=== PATIENT | female | born 1990 ===

== ENCOUNTER 2017-06-03 17:50 | Emergency (ER) | payer OTHER ==
[2017-06-03 17:50] VITALS: BMI 53.4
[2017-06-03 18:08] VITALS: BP 128/55; PULSE 112; RESP 18; TEMP 99; O2SAT 98
[2017-06-03] MEDS ORDERED: Albuterol-Ipratrop 3 mg / 0.5 (3 ml) UD INH STA (18:57)
--- NOTE | 2017-06-03 18:59 | ED PDOC ---
HPI: General Adult Time Seen by Provider: 06/03/17 18:53 Chief Complaint (Nursing): Cough, Cold, Congestion Chief Complaint (Provider): cough History Per: Patient Additional Complaint(s): 26-year-old female presents to emergency department with cough, chest congestion and body aches started yesterday. Patient denies any shortness of breath or dyspnea on exertion. She states cough is productive of yellow sputum. Patient is being seen today with her 1-year-old son who also has similar symptoms. Past Medical History Reviewed: Historical Data, Nursing Documentation, Vital Signs Vital Signs: Last Vital Signs Temp 99 F 06/03/17 18:06 Pulse 112 H 06/03/17 18:06 Resp 18 06/03/17 18:06 BP 128/55 L 06/03/17 18:06 Pulse Ox 98 06/03/17 18:59 - Medical History PMH: No Chronic Diseases - Surgical History Surgical History: (x 1) Other surgeries: Surgery for pilonidal cyst - Family History Family History: States: No Known Family Hx - Living Arrangements Living Arrangements: With Family - Social History Current smoker - smoking cessation education provided: No Alcohol: None Drugs: Denies - Home Medications Home Medications: Ambulatory Orders Medication Instructions Recorded Valacyclovir HCl [Valtrex] 500 mg PO BID 06/06/15 Docusate [Colace] 100 mg PO BID #30 cap 06/10/15 Ibuprofen [Motrin Tab] 600 mg PO TID #30 tab 06/10/15 Oxycodone HCl/Acetaminophen 1 each PO Q4 PRN #30 tablet 06/10/15 [Percocet 5-325 mg Tablet] Amoxicillin/Clavulanate [Augmentin 1 tab PO BID #14 tab 11/29/15 875 MG-125 MG] Ciprofloxacin HCl/Dexameth 2 drop TID #0 drops.susp 11/29/15 [Ciprodex Otic Suspension] Albuterol HFA [Ventolin HFA 90 1 puff IH ASDIR #1 unit 06/03/17 mcg/actuation (8 g)] Azithromycin [Zithromax] 250 mg PO DAILY #6 tab 06/03/17 Benzonatate 200 mg PO TID PRN #20 capsule 06/03/17 Oseltamivir Phosphate [Tamiflu] 75 mg PO BID #10 capsule 06/03/17 - Allergies Allergies/Adverse Reactions: Allergies Allergy/AdvReac Type Severity Reaction Status Date / Time No Known Allergies Allergy Verified 11/29/15 06:24 Review of Systems ROS Statement: Except As Marked, All Systems Reviewed And Found Negative Constitutional: Positive for: Other (body aches). Negative for: Fever, Chills Respiratory: Positive for: Cough, Sputum (yellow) Gastrointestinal: Negative for: Nausea, Vomiting Physical Exam - Reviewed Nursing Documentation Reviewed: Yes Vital Signs Reviewed: Yes - Physical Exam Appears: Positive for: Well, Non-toxic, No Acute Distress Skin: Negative for: Rash Eye Exam: Positive for: Normal appearance ENT: Negative for: Nasal Congestion, Pharyngeal Erythema Cardiovascular/Chest: Positive for: Regular Rate, Rhythm Respiratory: Positive for: Decreased Breath Sounds. Negative for: Wheezing, Respiratory Distress Neurologic/Psych: Positive for: Alert, Oriented - Laboratory Results Urine POC: Negative - ECG O2 Sat by Pulse Oximetry: 98 Pulse Ox Interpretation: Normal - Other Rad CXR X-Ray: Interpreted by Me, Viewed By Me X-Ray Interpretation: no acute infiltrate Medical Decision Making Medical Decision Makin26 year old with cough Plan: test CXR Flu swab Duoneb x 1 Chest x-ray is normal, Flu swab is negative. Patient's son is also being seen in ED and tested positive for flu B. Patient given prescription for Tamiflu, Zithromax, Tessalon Perles and Ventolin inhaler. Advised fluids, rest and NSAIDs for fever as needed. Advised follow-up with primary doctor in 1-2 days. Disposition - Clinical Impression Clinical Impression: Upper respiratory infection - Patient ED Disposition Is Patient to be Admitted: No Counseled Patient/Family Regarding: Studies Performed, Diagnosis, Need For Followup, Rx Given - Disposition Referrals: [facility] [Outside] Disposition: Routine/Home Disposition Time: 19:45 Condition: STABLE Additional Instructions: Take prescription meds as directed. Take [id number] Tylenol and Motrin for fever and body aches. Rest and drink plenty of fluids. Follow up with primary doctor in 2-3 days. Prescriptions: Albuterol HFA [Ventolin HFA 90 mcg/actuation (8 g)] 1 puff IH ASDIR #1 unit Azithromycin [Zithromax] 250 mg PO DAILY #6 tab Benzonatate 200 mg PO TID PRN #20 capsule PRN Reason: Cough Oseltamivir Phosphate [Tamiflu] 75 mg PO BID #10 capsule Instructions: Upper Respiratory Infection (ED) Forms: [facility] ([place]), [facility] ED School/Work Excuse
[2017-06-03] MEDS ORDERED: Albuterol-Ipratrop 3 mg / 0.5 (3 ml) UD ONE (19:00)
--- NOTE | 2017-06-04 09:27 | RAD ---
HISTORY: cough COMPARISON: No prior. TECHNIQUE: Chest PA and lateral FINDINGS: LUNGS: No active pulmonary disease. PLEURA: No significant pleural effusion identified. No pneumothorax apparent. CARDIOVASCULAR: Normal. OSSEOUS STRUCTURES: No significant abnormalities. VISUALIZED UPPER ABDOMEN: Normal. OTHER FINDINGS: None. IMPRESSION: No acute cardiopulmonary disease appreciated.
== END 2017-06-03 20:22 | disposition home or self-care (01) ==
LOC: H.ER 17:50
DX: J06.9 Acute upper respiratory infection, unspecified (principal)

== ENCOUNTER 2017-11-06 19:56 | Emergency (ER) | payer OTHER ==
[2017-11-06 19:56] VITALS: BMI 53.4
[2017-11-06 20:41] VITALS: BP 120/76; PULSE 65; RESP 16; TEMP 98.4; O2SAT 98
== END 2017-11-06 21:54 | disposition home or self-care (01) ==
LOC: H.ER 19:56
DX: H57.12 Ocular pain, left eye (principal); R05 Cough